=== PATIENT | female | born 1960 | race Caucasian/White ===

== ENCOUNTER 2018-01-25 08:16 | Day surgery (SDC) | payer BC ==
[~2018-01-25 08:16] MED LIST: Buffered Lidocaine 0.9% SYRIN* 5 ML/SYR SYRINGE INTRADERM ONE
[2018-01-25] MEDS ORDERED: Buffered Lidocaine 0.9% SYRIN* 5 ML/SYR SYRINGE ONE (08:28)
[2018-01-25] MEDS ORDERED: Bupivacaine 0.25% SDV* 30 ML ONE (11:51)
[2018-01-25] MEDS ORDERED: fentaNYL* 50 MCG/ML 2 ML VIAL (100 MCG VIAL) ONE (11:55)
[2018-01-25] MEDS ORDERED: Midazolam* 1 MG/ML 2 ML VIAL (2 MG) ONE (11:56)
[2018-01-25] MEDS ORDERED: Naloxone* 0.4 MG/ML 1 ML VIAL IV PRN (11:59)
[2018-01-25] MEDS ORDERED: Propofol* 10 MG/ML 20 ML BTL IV PUSH ONE (12:28)
[2018-01-25 14:01] VITALS: BP 137/76
--- NOTE | 2018-01-30 04:21 | OP ---
DATE OF OPERATION: 01/25/18 - [facility] DATE OF : 58 SURGEON: Cal Maldonado MD QUALITY CONTROL: SAURABH Nova ANESTHESIOLOGIST: Dr. Winkler. ANESTHESIA: Local MAC. PRE-OP DIAGNOSES: 1. Left wrist de Quervain's tendonitis with quite a bit of nodularity and tendon sheath mass. 2. Left carpal tunnel syndrome. POST-OP DIAGNOSES: 1. Left de Quervain's tenosynovitis with abundant tenosynovitis necessitating tenosynovectomy. 2. Left carpal tunnel syndrome. OPERATIVE PROCEDURE: 1. Left wrist de Quervain's release. 2. Left first dorsal compartment tenosynovectomy. 3. Left open carpal tunnel release. INDICATIONS: Jailyn has had severe left de Quervain's disease. Additionally, she informs me that she was having the hand that woke up numb and tingly every morning. I did recommend we do a carpal tunnel release as well. She under- stood risks and benefits. She wanted to proceed with surgery. DESCRIPTION OF PROCEDURE: Jailyn was seen in the preoperative holding area. The correct side, site and the procedure were identified. We came back to the operating room. The arm was prepped and draped in usual fashion. A time-out was performed. I began by making a 2 to 3 cm incision in a standard location for an open carpal tunnel release. Dissection was carried down through the skin and subcutaneous tissue. The transverse carpal ligament was released just off the radial aspect of hook of the hamate. The release was completed distally and proximally. Proximally, the subcutaneous tissue and fascia was released and retracted volarly and ulnarly with the Katey retractor. The remainder of the transverse carpal ligament was released under direct visualization with the tenotomy scissors as was the distal antebrachial fascia. Once the release was checked and was complete, there was absolutely no compression on the nerve, the wound was irrigated out. The skin was closed with 4-0 nylon suture. I then made a 2 cm transverse incision just proximal to the radial styloid. Dissection was carried down bluntly and full-thickness fascia raised off the tendon sheath, identifying and preserving the sensory nerves. The tendon sheath was opened along the dorsal aspect. This was completed proximally and distally with the tenotomy scissors. Obviously it became clear that the nodularity was due to the abundant amount of tenosynovitis that was present in the tendon sheath all the way from the base of the thumb metacarpal down towards the musculotendinous junction. I went ahead and took some time, took [id number] minutes to do this, but I excised off all of the tenosynovitis off of the first dorsal compartment tendons. This was handed off as a specimen. It had a darkish appearance and looked quite inflammatory. At this point, the tendons were looking nice and clean. There was not an accessory compartment. We irrigated out the wound. The tendons were placed back inside the sheath. The skin was closed with 4-0 nylon suture. The wounds were dressed with Xeroform, 4 x 4s, sterile Webril and an Moshe bandage. She was then taken to the recovery room in stable condition. [id number]/CPS #: [id number] ALLY
== END 2018-01-25 14:19 | disposition home or self-care (01) ==
LOC: OR 08:16
PROVIDERS: ATTEND Orthopaedic Surgery Hand Surgery
DX: M65.4 Radial styloid tenosynovitis [de Quervain] (principal); G56.02 Carpal tunnel syndrome, left upper limb; R22.32 Localized swelling, mass and lump, left upper limb; M19.90 Unspecified osteoarthritis, unspecified site; Z68.28 Body mass index [BMI] 28.0-28.9, adult; Z87.891 Personal history of nicotine dependence
CPT/HCPCS: 88304; J2250; J2704; J3010

== ENCOUNTER 2018-12-15 09:25 | Emergency (ER) | payer BC ==
--- NOTE | 2018-12-15 09:55 | ED ---
Abdominal Pain/Female - HPI Summary HPI Summary: A 58 y/o F presents to ED with c/o L-sided ab pain onset 1.5 weeks ago. Pain has not been worsening nor improving. Pain radiates to bilateral back, but not to her chest, and is described as aching, stabbing, and occasionally cramping. Pt saw her PCP this AM and there was blood in her UA, so PCP referred her to ED to r/o kidney stone. Associated sx: mild chills, nausea, intermittent episodes of RLQ pain. Denies dysuria, fever, SOB, vomiting. At bedside, her pain is 5 out of 10 and at its worst was 10 out of 10. She was taking Ibuprofen every three hours for the pain, but has not taken it today. She denies previous episode of similar pain. No PMHx of kidney stones or CRF. PMHx: rheumatoid arthritis, cirrhosis, cholecystectomy. Non-smoker, no ETOH, no recreational drugs. - History of Current Complaint Chief Complaint: EDFlankPain Stated Complaint: FLANK PAIN Time Seen by Provider: 12/15/18 09:40 Hx Obtained From: Patient Onset/Duration: Lasting Weeks, Still Present Timing: Constant Severity Initially: Moderate Severity Currently: Moderate Pain Intensity: 5 Pain Scale Used: 0-10 Numeric Location: Discrete At: RLQ - occassionally, Other - mainly L-sided abd pain Radiates: Yes Radiates to: Back Character: Sharp - stabbing, Cramping, Other: - aching Associated Signs and Symptoms: Positive: Back Pain, Nausea, Other: - neg: SOB. Negative: Fever, Urinary Symptoms, Vomiting Allergies/Adverse Reactions: Allergies Allergy/AdvReac Type Severity Reaction Status Date / Time Adhesive Tape [Paper Tape] Allergy REDNESS Verified 12/15/18 09:31 naproxen [From Aleve] Allergy Bleeding Verified 12/15/18 09:31 BEE STINGS / SPIDER BITES Allergy SWELLING, Uncoded 12/15/18 09:31 DIFFICULTY BREATHING ENVIRONMENTAL Allergy SNEEZING, Uncoded 12/15/18 09:31 COUGHING PMH/Surg Hx/FS Hx/Imm Hx Previously Healthy: No Endocrine/Hematology History: Denies: Hx Diabetes, Hx Thyroid Disease Cardiovascular History: Denies: Hx Congestive Heart Failure, Hx Hypertension, Other Cardiovascular Problems/Disorders Respiratory History: Reports: Other Respiratory Problems/Disorders - History of pneumonia 2009 Denies: Hx Asthma, Hx Chronic Obstructive Pulmonary Disease (COPD) GI History: Reports: Hx Gastroesophageal Reflux Disease - Tums or omeprazole PRN, Hx Hiatal Hernia, Hx Ulcer - age 6, bleeding ulcer -hospitalized, Other GI Disorders - cholecystectomy 2013 History: Denies: Hx Renal Disease Musculoskeletal History: Reports: Hx Arthritis - Psoriatic Arthritis, Rheumatoid Arthritis, Osteoarthritis, Hx Tendonitis - LEFT WRIST, tendon sheath mass, Other Musculoskeletal History - Osteopenia Denies: Hx Osteoporosis Sensory History: Reports: Hx Contacts or Glasses - READING Denies: Hx Hearing Aid Opthamlomology History: Reports: Hx Contacts or Glasses - READING Neurological History: Reports: Hx Migraine - prior to menopause, none recent Denies: Other Neuro Impairments/Disorders - Surgical History Surgery Procedure, Year, and Place: TUBAL LIGATION, [facility]. cauterization of uterus, [facility]. 02/2015 LAPAROSCOPIC CHOLECYSTECTOMY, [facility]. neuroma removed from left foot 10/2015 Hx Anesthesia Reactions: No Infectious Disease History: No Infectious Disease History: Denies: Hx Clostridium Difficile, Hx Hepatitis, Hx Human Immunodeficiency Virus (HIV), Hx of Known/Suspected MRSA, Hx Shingles, Hx Tuberculosis, Hx Known/ Suspected VRE, Hx Known/Suspected VRSA, History Other Infectious Disease, Traveled Outside the [place] in Last 30 Days - Family History Known Family History: Positive: Hypertension Family History: mom - RA; dad - CHF - Social History Occupation: Employed Full-time Lives: With Family Alcohol Use: Occasionally Hx Substance Use: No Substance Use Type: Reports: None Hx Tobacco Use: Yes Smoking Status (MU): Former Smoker Type: Cigarettes Amount Used/How Often: "very few" Length of Time of Smoking/Using Tobacco: 25+ years Have You Smoked in the Last Year: No Review of Systems Positive: Chills - mild. Negative: Fever Negative: Shortness Of Breath Positive: Abdominal Pain, Nausea. Negative: Vomiting Negative: dysuria Musculoskeletal: Other - pos: back pain All Other Systems Reviewed And Are Negative: Yes Physical Exam - Summary Physical Exam Summary: VITAL SIGNS: Reviewed. GENERAL: Patient is a well-developed and nourished female who is lying comfortable in the stretcher. Patient is not in any acute respiratory distress. HEAD AND FACE: Normocephalic and atraumatic. EYES: PERRLA, EOMI x 2, No injected conjunctiva. EARS: Hearing grossly intact. Ear canals and tympanic membranes are WNL. MOUTH: Oropharynx within normal limits. NECK: Supple, trachea is midline, no adenopathy, no JVD. CHEST: Symmetric, no tenderness at palpation LUNGS: Clear to auscultation bilaterally. No wheezing or crackles. CVS: RRR, S1 and S2 present, no murmurs or gallops appreciated. ABDOMEN: Soft, L CVA tenderness. No signs of distention. Positive bowel sounds. No rebound, no guarding, and no masses palpated. No abdominal bruit or pulsations. EXTREMITIES: FROM in all major joints, no edema, no cyanosis or clubbing. NEURO: Alert and oriented x 3. No acute neurological deficits. Speech is normal. SKIN: Dry and warm Triage Information Reviewed: Yes Vital Signs On Initial Exam: Initial Vitals Temp Pulse Resp BP Pulse Ox 97.2 F 81 14 162/89 97 12/15/18 09:28 12/15/18 09:28 12/15/18 09:28 12/15/18 09:28 12/15/18 09:28 Vital Signs Reviewed: Yes Diagnostics - Vital Signs Vital Signs Temp Pulse Resp BP Pulse Ox 12/15/18 09:28 97.2 F 81 14 162/89 97 - Laboratory Result Diagrams: 12/15/18 10:03 12/15/18 10:03 Lab Statement: Any lab studies that have been ordered have been reviewed, and results considered in the medical decision making process. - CT A/P CT Interpretation Completed By: Radiologist Summary of CT Findings: IMPRESSION: 1. FINDINGS MOST CONSISTENT WITH DIVERTICULITIS IN THE PROXIMAL DESCENDING COLON. RECOMMEND CLINICAL CORRELATION AND FOLLOW-UP. 2. 1.5 CM NODULAR DENSITY IN THE RIGHT BREAST. RECOMMEND FOLLOW-UP MAMMOGRAMS FOR FURTHER. EVALUATION. 3. SMALL INFILTRATES AT BOTH LUNG BASES SUGGESTIVE OF ATELECTASIS LESS LIKELY PNEUMONIA. 4. SMALL NONOBSTRUCTING LEFT RENAL CALCULUS. Re-Evaluation - Re-Evaluation 1 Re-Evaluation Time: 11:27 Change: Unchanged Comment: Discussing results with pt and plan to discharge. Pt voiced understanding. Abdominal Pain Fem Course/Dx - Course Course Of Treatment: A 58 y/o F presents to ED with c/o L-sided ab pain onset 1.5 weeks ago. Pain has not been worsening nor improving. Pain radiates to bilateral back, but not to her chest, and is described as aching, stabbing, and occasionally cramping. Pt saw her PCP this AM and there was blood in her UA, so PCP referred her to ED to r/o kidney stone. Associated sx: mild chills, nausea, intermittent episodes of RLQ pain. Denies dysuria, fever, SOB, vomiting. At bedside, her pain is 5 out of 10 and at its worst was 10 out of 10. She was taking Ibuprofen every three hours for the pain, but has not taken it today. She denies previous episode of similar pain. No PMHx of kidney stones or CRF. PMHx: rheumatoid arthritis, cirrhosis, cholecystectomy. Non-smoker, no ETOH, no recreational drugs. Blood work is without any significant abnormality except for CRP of 32.6 and urinalysis positive for ketones no UTI. Abdominopelvic CT impression: Findings most consistent with diverticulitis in the proximal descending colon recommend clinical correlations and follow up. One 0.5 cm nodular density in the right breast recommended follow-up. A small infiltrate in both lung bases suggestive atelectasis less likely pneumonia. Small nonobstructing left renal calculus. In the ED course the patient was given ciprofloxacin and Flagyl for the acute diverticulitis. Next time the patient will be discharged home with follow-up with primary care physician and surgery for the nodular density in the right. The patient understands and agrees. I discussed all the findings and test results with the patient. Patient was instructed to return to the emergency room immediately if any of the symptoms return or worsens. Plan of care was discussed with the patient and understands and agrees. All questions were answered at patient satisfaction. There were no further complaints or concerns. Lung exam before discharge: CTA B/L. Good air exchange. No wheezing or crackles heard. CVS: S1 and S2 present. No murmurs appreciated. Patient is alert and oriented x 3. Patient is hemodynamically stable. Patient will be discharged home with follow up PCP in the next 2-3 day - Diagnoses Differential Diagnosis: Positive: Constipation, Diverticulitis, Pancreatitis, Renal Colic, Urinary Tract Infection Provider Diagnoses: Diverticulitis, Breast nodule Discharge - Sign-Out/Discharge Documenting (check all that apply): Patient Departure - DC - Discharge Plan Condition: Stable Disposition: HOME Prescriptions: Ciprofloxacin TAB* [Cipro 500 MG TAB*] 500 mg PO BID #20 tab metroNIDAZOLE [Flagyl 500 MG TAB] 500 mg PO TID #30 tab Patient Education Materials: Ciprofloxacin (By mouth), Metronidazole (By mouth) , Diverticulitis (ED), Breast Mass (ED) Forms: *Work Release Referrals: Katarzyna Reyna MD [Primary Care Provider] - 3 Days Nicole Sutton MD [Medical Doctor] - 3 Days Additional Instructions: Follow up with your primary care provider in 3 days. Follow up with Dr. Sutton, surgery, in 3 days. RETURN TO THE ED FOR ANY WORSENING OR NEW SYMPTOMS. - Billing Disposition and Condition Condition: STABLE Disposition: Home - Attestation Statements Document Initiated by Scribe: Yes Documenting Scribe: Nii Unger Provider For Whom Yfn is Documenting (Include Credential): Dr. Mark Fairchild MD Scribe Attestation: Nii Curran, scribed for Dr. Mark Fairchild MD on 12/15/18 at 1213. Scribe Documentation Reviewed: Yes Provider Attestation: The documentation as recorded by the Nii wyatt accurately reflects the service I personally performed and the decisions made by , Dr. Mark Fairchild MD Status of Scribe Document: Viewed
[2018-12-15 10:04] LABS: Urine Appearance Cloudy; Urine Bilirubin Negative (Negative); Urine Blood Negative (Negative); Urine Color Yellow; Urine Glucose Negative (Negative); Urine Ketones Trace (Negative); Urine Nitrite Negative (Negative); Urine Protein Negative (Negative); Urine Specific Gravity 1.023 (1.010-1.030); Urine Urobilinogen Negative (Negative)
[2018-12-15 10:11] LABS: ABS Basophils 0 10^3/ul (0-0.2); ABS Eosinophils 0.1 10^3/ul (0-0.6); ABS Lymphocytes 0.8 10^3/ul (1.0-4.8); ABS Monocytes 0.5 10^3/ul (0-0.8); ABS Nucleated RBC 0 10^3/ul; Eosinophil % 2.2 %; Hematocrit 43 % (35-47); Hemoglobin 14.7 g/dl (12.0-16.0); Lymphocyte % 24.5 %; Mean Corpuscular HGB Conc 34 g/dl (31-36); Mean Corpuscular Hemoglobin 35 pg (27-31); Mean Corpuscular Volume 102 fL (80-97); Mean Platelet Volume 8.6 fL (7.4-10.4); Nucleated Red Blood Cells % 0.1; Platelet Count 208 10^3/ul (150-450); Red Blood Count 4.26 10^6/ul (4.00-5.40); Red Cell Distribution Width 13 % (10.5-15); White Blood Count 3.4 10^3/ul (3.5-10.8)
[2018-12-15 10:32] LABS: Albumin 4.2 g/dL (3.2-5.2); Albumin/Globulin Ratio 1.6 (1-3); BUN/Creatinine Ratio 15.9 (8-20); C Reactive Protein 32.63 mg/L (<8.01); Calcium 9.6 mg/dL (8.6-10.3); EGFR Non-African American 71.4 (>60); Globulin 2.7 g/dL (2-4); Potassium 4.2 mmol/L (3.5-5.0); Total Bilirubin 0.4 mg/dL (0.2-1.0); Total Protein 6.9 g/dL (6.4-8.9)
[2018-12-15] MEDS ORDERED: Ciprofloxacin 400MG IVPREMIX(* 400 MG/200 ML BAG IVPB ONE (10:59)
[2018-12-15] MEDS ORDERED: metroNIDAZOLE TAB* 250 MG PO ONE (10:59)
[2018-12-15 12:10] VITALS: BP 144/86
== END 2018-12-15 12:15 | disposition home or self-care (01) ==
LOC: ED 09:25
DX: K57.32 Diverticulitis of large intestine without perforation or abscess without bleeding (principal); N63.10 Unspecified lump in the right breast, unspecified quadrant; R91.8 Other nonspecific abnormal finding of lung field; N20.0 Calculus of kidney; K21.9 Gastro-esophageal reflux disease without esophagitis; Z90.49 Acquired absence of other specified parts of digestive tract; Z88.6 Allergy status to analgesic agent; Z91.030 Bee allergy status; Z91.048 Other nonmedicinal substance allergy status; Z87.891 Personal history of nicotine dependence
CPT/HCPCS: 36415; 74176; 80053; 81003; 83605; 83690; 85025; 86140; 96365; 99283; A9270-GY; J0744

== ENCOUNTER 2019-12-27 08:34 | Emergency (ER) | payer BC, OTHER ==
--- OUTSIDE RECORDS SUMMARY | 2019-12-27 08:46 | XMS REPORT | Continuity of Care Document ---
:1960 External Reference #:[id number] Author Name OBDULIA Whitney (transmitted by agent of provider Ely Eduardo) Address [address] [place] [id number] Care Team Providers Name Role Phone Katarzyna Reyna MD - Internal Care Team Information [facility] Evette Martin M.D. - Single Care Team Information [facility] Problems Active Problems Provider Date Psoriasis Navid Tapia M.D. Onset: 08/19/2012 Psoriasis with arthropathy Navid Tapia M.D. Onset: 08/19/2012 Medications Skilled Nursing (Current) Use Encounter Navid Tapia M.D. Onset: Acute bronchitis Navid Tapia M.D. Onset: 11/04/2013 Diverticulosis of sigmoid colon Katarzyna Reyna M.D. Onset: 01/07/2012 Gastroesophageal reflux disease Katarzyna Reyna M.D. Onset: 01/07/2015 Taking medication OBDULIA Whitney Onset: 01/19/2015 Hiatal hernia Onset: 02/04/2015 Note: small clinical GERD , nl gastroscopy Dr. Hayward Recurrent herpes simplex Katarzyna Reyna M.D. Onset: 09/12/2015 Note: buttocks ( cannot stop suppressive therapy ) Psoriatic dactylitis Katarzyna Reyna M.D. Onset: 10/15/2015 Osteopenia Katarzyna Reyna M.D. Onset: 01/14/2017 Radial styloid tenosynovitis Cal Maldonado MD Onset: 12/30/2017 Localized superficial swelling of skin Cal Maldonado MD Onset: 12/30/2017 Kidney stone Katarzyna Reyna M.D. Onset: 12/16/2018 Note: non obstructive Social History Type Date Description Comments Sex Unknown ETOH Use Denies alcohol use Tobacco Use Start: Unknown Patient is a former Quit Oct 2014 3-4 cig End: Unknown smoker X 25 yrs Recreational Drug Use Denies Drug Use Smoking Status Reviewed: 12/09/19 Patient is a former Quit Oct 2014 3-4 cig smoker X 25 yrs Exercise Type/Frequency Exercises regularly uses exercise bike 6 miles 4 times a week , walking , stretching yoga Allergies, Adverse Reactions, Alerts Active Allergies Reaction Severity Comments Date Aleve 02/20/2011 Naproxen Nausea and Vomiting, Bleeding 02/20/2011 Bee Sting 02/20/2011 Spider Bites 02/20/2011 Medications Active Medications SIG Qnty Indications Ordering Date Provider Bupropion take 1 tablet by 30tabs F43.21 Chuy Martin, 12/09/2019 Hydrochloride ER (SR) mouth every day COMMUNITY NURSE in the morning 100mg Tablets ER 12HR Clobetasol Propionate use on lt palm 60gm R21 Chuy Martin, 09/24/2018 2x daily for 2 COMMUNITY NURSE 0.05% Cream weeks on and 1 week off Simvastatin Take 1 Tablet By 90tabs Katarzyna Reyna, 08/26/2018 20mg Tablets Mouth Once Daily M.DSavage B12 1000MG Cal Maldonado, 12/30/2017 Aspir-81 1 by mouth every 100tabs Braydon Valdes NP 01/21/[address] valorie Caraballo apply to 1tubes L40.59 Chuy Martin, 07/18/2014 1% Gel affected area COMMUNITY NURSE twice a day, as needed Enbrel Sureclick Inject 50 MG (1 12units L40.9 Chuy Martin, 09/18/2011 50mg/ml ML) Under The COMMUNITY NURSE Solution Auto-Inject Skin Once A Week Z79.899 L40.59 Calcium 500 +D 1 po qd Unknown [id number] Tablets Vitamin D3 1 by mouth every day 30caps Unknown 2000Unit Capsules Multi For Her 1 by mouth every day 90caps Unknown Capsules Epipen 2-Ramirez use as directed for 1units T63.391S Chuy Martin, 0.3mg/0.3ML bee sting COMMUNITY NURSE Solution Auto-Inject anaphylaxis Vitamin C 1 by mouth every day Unknown 500mg Chewtabs Osteo Bi-Flex Regular 1 by mouth every day Unknown Strength 250-200mg Tablets Evening Seibert Oil a day Unknown 3mg Capsules Vitamin E 1 cap by mouth every Unknown 400Unit Capsules day for supplement Valacyclovir HCL Take 1 Tablet By 90tabs Katarzyna Reyna, 1gm Mouth Once Daily M.D. Tablets Medications Administered in Office Medication SIG Qnty Indications Ordering Provider Date Inj, Regadenoson, 0.1 MG Nick Rendon, DO FAC 01/02/2016 Injection Technetium TC 99M Nick Rendon, DO [facility] 01/02/2016 Tetrofosmin, Per Unit Dose Up To 40 Millicuries Injection PPD Nurse Visit 02/24/2011 Injection Immunizations CPT Code Status Date Vaccine Lot # [id number] Given 01/13/2013 Tdap - Tetanus/Diptheria/Acellular Pertussis [id number] Refused 01/14/2017 Influ Virus Vaccine, Quadrivalent, Split Virus, [place] [id number] Refused 10/15/2015 Influenza Virus Vaccine, Quadrivalent, Split, Preservative Free Vital Signs Date Vital Result Comment 12/09/2019 8:22am Height 60 inches 5'0" Weight 156.00 lb Heart Rate 59 /min BP Systolic 129 mmHg BP Diastolic 82 mmHg Body Temperature 97.7 F O2 % BldC Oximetry 97 % BMI (Body Mass Index) 30.5 kg/m2 08/09/2019 3:18pm Height 60 inches 5'0" Weight 148.38 lb Heart Rate 75 /min BP Systolic 142 mmHg BP Diastolic 92 mmHg Body Temperature 97.4 F O2 % BldC Oximetry 96 % BMI (Body Mass Index) 29.0 kg/m2 Results Test Acquired Date Facility Test Result H/L Range Note CBC Auto 12/05/2019 [facility] White Blood 5.4 10^3/uL Normal 3.5-10.[address] [place] [address] [phone] Red Blood Count 4.29 10^6/uL Normal 3.70-4.87 Hemoglobin 14.9 g/dL Normal 12.0-16.0 Hematocrit 44 % Normal 35-47 Mean Corpuscular Volume 102 fL High 80-97 Mean Corpuscular Hemoglobin 35 pg High 27-31 Mean Corpuscular HGB Conc 34 g/dL Normal 31-36 Red Cell Distribution Width 13 % Normal 10-15 Platelet Count 231 10^3/uL Normal 150-450 Mean Platelet Volume 8.8 fL Normal 7.4-10.4 Abs Neutrophils 3.1 10^3/uL Normal 1.5-7.7 Abs Lymphocytes 1.7 10^3/uL Normal 1.0-4.8 Abs Monocytes 0.5 10^3/uL Normal 0-0.8 Abs Eosinophils 0.1 10^3/uL Normal 0-0.6 Abs Basophils 0.0 10^3/uL Normal 0-0.2 Abs Nucleated RBC 0.0 10^3/uL Granulocyte % 56.7 % Lymphocyte % 31.4 % Monocyte % 9.2 % Eosinophil % 2.0 % Basophil % 0.7 % Nucleated Red Blood Cells % 0.0 Comp Metabolic 12/05/2019 [facility] Sodium 141 mmol/L Normal 135-[address] [place] [address] [phone] Potassium 4.2 mmol/L Normal 3.5-5.0 Chloride 105 mmol/L Normal 101-111 Co2 Carbon Dioxide 31 mmol/L Normal 22-32 Anion Gap 5 mmol/L Normal 2-11 Glucose 74 mg/dL Normal 70-100 Blood Urea Nitrogen 16 mg/dL Normal 6-24 Creatinine 1.03 mg/dL High 0.51-0.95 BUN/Creatinine Ratio 15.5 Normal 8-20 Calcium 9.8 mg/dL Normal 8.6-10.3 Total Protein 7.0 g/dL Normal 6.4-8.9 Albumin 4.7 g/dL Normal 3.2-5.2 Globulin 2.3 g/dL Normal 2-4 Albumin/Globulin Ratio 2.0 Normal 1-3 Total Bilirubin 0.30 mg/dL Normal 0.2-1.0 Alkaline Phosphatase 59 U/L Normal 34-104 Alt 32 U/L Normal 7-52 Ast 24 U/L Normal 13-39 Egfr Non- 54.7 >60 Egfr 66.1 >60 1 Laboratory test 12/05/2019 [facility] C Reactive < 1.00 Normal <8.01 [address] Protein mg/[place] [address] [phone] Erythrocyte Sed Rate 7 mm/Hr Normal 0-29 3 CBC Auto 08/11/2019 [facility] White Blood 3.9 10^3/uL Normal 3.5-10.[address] [place] [address] [phone] Red Blood Count 4.21 10^6/uL Normal 3.70-4.87 Hemoglobin 14.7 g/dL Normal 12.0-16.0 Hematocrit 43 % Normal 35-47 Mean Corpuscular Volume 102 fL High 80-97 Mean Corpuscular Hemoglobin 35 pg High 27-31 Mean Corpuscular HGB Conc 34 g/dL Normal 31-36 Red Cell Distribution Width 13 % Normal 10-15 Platelet Count 223 10^3/uL Normal 150-450 Mean Platelet Volume 9.0 fL Normal 7.4-10.4 Abs Neutrophils 2.0 10^3/uL Normal 1.5-7.7 Abs Lymphocytes 1.5 10^3/uL Normal 1.0-4.8 Abs Monocytes 0.4 10^3/uL Normal 0-0.8 Abs Eosinophils 0.1 10^3/uL Normal 0-0.6 Abs Basophils 0.0 10^3/uL Normal 0-0.2 Abs Nucleated RBC 0.0 10^3/uL Granulocyte % 50.5 % Lymphocyte % 36.8 % Monocyte % 9.6 % Eosinophil % 2.3 % Basophil % 0.8 % Nucleated Red Blood Cells % 0.1 Comp Metabolic 08/11/2019 [facility] Sodium 141 mmol/L Normal 135-[address] [place] [address] [phone] Potassium 4.1 mmol/L Normal 3.5-5.0 Chloride 106 mmol/L Normal 101-111 Co2 Carbon Dioxide 29 mmol/L Normal 22-32 Anion Gap 6 mmol/L Normal 2-11 Glucose 94 mg/dL Normal 70-100 Blood Urea Nitrogen 13 mg/dL Normal 6-24 Creatinine 0.91 mg/dL Normal 0.51-0.95 BUN/Creatinine Ratio 14.3 Normal 8-20 Calcium 9.6 mg/dL Normal 8.6-10.3 Total Protein 6.7 g/dL Normal 6.4-8.9 Albumin 4.4 g/dL Normal 3.2-5.2 Globulin 2.3 g/dL Normal 2-4 Albumin/Globulin Ratio 1.9 Normal 1-3 Total Bilirubin 0.50 mg/dL Normal 0.2-1.0 Alkaline Phosphatase 61 U/L Normal 34-104 Alt 27 U/L Normal 7-52 Ast 25 U/L Normal 13-39 Egfr Non- 63.1 >60 Egfr 76.3 >60 4 Laboratory test 08/11/2019 [facility] C Reactive < 1.00 Normal <8.01 [address] Protein mg/[place] [address] [phone] Erythrocyte Sed Rate 4 mm/Hr Normal 0-29 6 1 Because ethnic data is not always readily available, this report includes an eGFR for both -Americans and non- Americans. The National Kidney Disease Education Program (NKDEP) does not endorse the use of the MDRD equation for patients that are not between the ages of 18 and 70, are , have extremes of body size, muscle mass, or nutritional status, or are non- or non-. According to the National Kidney Foundation, irrespective of diagnosis, the stage of the disease is based on the level of kidney function: Stage Description GFR(mL/min/1.73 m(2)) 1 Kidney damage with normal or decreased GFR 90 2 Kidney damage with mild decrease in GFR 60-89 3 Moderate decrease in GFR 30-59 4 Severe decrease in GFR 15-29 5 Kidney failure <15 (or dialysis) 2 ORDERED 08.09.19 EXPIRES 02.07.20 3 ORDERED 08.09.19 EXPIRES 02.07.20 4 Because ethnic data is not always readily available, this report includes an eGFR for both -Americans and non- Americans. The National Kidney Disease Education Program (NKDEP) does not endorse the use of the MDRD equation for patients that are not between the ages of 18 and 70, are , have extremes of body size, muscle mass, or nutritional status, or are non- or non-. According to the National Kidney Foundation, irrespective of diagnosis, the stage of the disease is based on the level of kidney function: Stage Description GFR(mL/min/1.73 m(2)) 1 Kidney damage with normal or decreased GFR 90 2 Kidney damage with mild decrease in GFR 60-89 3 Moderate decrease in GFR 30-59 4 Severe decrease in GFR 15-29 5 Kidney failure <15 (or dialysis) 5 ORDERED:04/06/19 :10/07/19 STANDING ORDER 6 ORDERED:04/06/19 :10/07/19 STANDING ORDER Procedures Date Code Description Status 03/17/2019 90268517 Colonoscopy Completed 12/28/2018 [id number] Mammogram Completed 08/24/2018 [id number] Bone Mineral Density Test Completed 11/04/2017 [id number] Mammogram Completed 08/07/2017 [id number] Diabetic Retinal Eye Exam Completed 07/09/2016 [id number] Mammogram Completed 01/24/2016 [id number] Bone Mineral Density Test Completed 04/12/2015 [id number] Mammogram Completed Medical Devices Description No Information Available Encounters Type Date Location Provider Dx Diagnosis Office Visit 08/09/2019 Rheumatology Chuy Martin, L40.59 Other psoriatic 3:[facility]p [facility] arthropathy L40.9 Psoriasis, unspecified M79.10 Myalgia, unspecified site Z79.899 Other moth exterminator (current) drug therapy Assessments Date Code Description Provider 12/09/2019 L40.59 Other psoriatic arthropathy LINDA WhitneyP 12/09/2019 L40.9 Psoriasis, unspecified LINDA WhitneyP 12/09/2019 Z79.899 Other moth exterminator (current) drug therapy OBDULIA Whitney 12/09/2019 F43.21 Adjustment disorder with depressed mood OBDULIA Whitney 08/09/2019 L40.59 Other psoriatic arthropathy OBDULIA Whitney 08/09/2019 L40.9 Psoriasis, unspecified OBDULIA Whitney 08/09/2019 M79.10 Myalgia, unspecified site LINDA WhitneyP 08/09/2019 Z79.899 Other moth exterminator (current) drug therapy OBDULIA Whitney Plan of Treatment Future Appointment(s):01/06/2020 8:00 am - OBDULIA Whitney at [facility]12/09/2019 - Chuy Martin, FNPL40.59 Other psoriatic arthropathyComments:Your arthritis seems to be clinically well controlled at this time.You continue with achy pain and stiffness.Your inflammatory markers are within normal range.Your latest laboratory tests indicate no detectable impairment of kidney and liver functions.Please, continue with Enbrel.Will stop Hydroxychloroquine as your limey do not need this medication to control the arthritis.You may use Voltaren on any achy jointContinue with regular blood tests. You will need to have a blood test done about a week prior to your next appointment.You have a standing lab order on file. Refills for your medications will sent to your pharmacy.We encourage you to participate in exercise programs and carry out daily activities as your condition allows. Cardiovascular health is essential for successful treatment. Please call the office if you develop any sign or symptoms of infection, increased skin or articular involvement or acute change in your health.Follow up:4-6 week Call if any side effects of medication or not helping in 2-3 nfxnzE18.9 Psoriasis, hhniofgklyjL21.899 Other retirement (current) drug ggoaozjA51.21 Adjustment disorder with depressed moodNew Medication:Bupropion Hydrochloride ER (SR) 100 mg - take 1 tablet by mouth every day in the morningComments:We discussed medication side effects: among others of depression and possibility of serotonin syndrome.We warned of potential withdrawal symptoms if medication is abruptly stopped. You should consider counseling for support. This helps in conjunction with the medication. MEDICATIONS:Selective Serotonin Reuptake Inhibitors (SSRIs)SSRIs relieve symptoms by blocking the reabsorption, or reuptake, of serotonin by certain nerve cells in the brain. This leaves more serotonin available, which improves mood. SSRIs (citalopram, escitalopram, fluoxetine, paroxetine, and sertraline) generally produced fewer side effects when compared with tricyclic antidepressants. However, common side effects includeinsomnia or sleepiness, sexual dysfunction, and weight gain. They are considered an effective treatment for all anxiety disorders, although the treatment of obsessive-compulsive disorder, or OCD, typically requires higher doses.Serotonin-Norepinephrine Reuptake Inhibitors (SNRIs)The serotonin-norepinephrine reuptake inhibitor, or SNRI, class (venlafaxine and duloxetine) is notable for a dual mechanism of action: increasing the levels of the neurotransmitters serotonin and norepinephrine by inhibiting their reabsorption into cells in the brain. As with other medications, side effects may occur, including stomach upset, insomnia, headache, sexual dysfunction, and minor increase in blood pressure. These medications are considered as effective as SSRIs, so they are also considered a first-line treatment, particularly for the treatment of generalized anxiety disorder.MEDICATIONS/general Most people need to take medications for at least 6 weeks to see full effect. Common side effects are constipation/diarrhea and nausea, weigh change, insomnia. It is generally recommended not to stop medication abruptly. You may experience increased suicidal thoughts. If this occurs please call us or the hot line immediately. Medications has many drug interaction. You should not be using any recreational drugs or alcohol while on this medication. Functional Status Description No Information Available Mental Status Description No Information Available Referrals Description No Information Available
[2019-12-27 09:00] VITALS: BP 152/88
--- NOTE | 2019-12-27 10:11 | UC ---
FLU HPI - HPI Summary HPI Summary: 3 DAYS OF COUGH, CHILLS, SUBJECTIVE FEVER, BODY ACHES, HEADACHE, SORE THROAT, EAR PAIN. NO NAUSEA/VOMITING. NO FLU SHOT THIS SEASON. - History of Current Complaint Chief Complaint: UCGeneralIllness Stated Complaint: SORE THROAT COUGH Time Seen by Provider: 12/27/19 10:00 Hx Obtained From: Patient Onset/Duration: Gradual Onset, Lasting Days, Still Present Severity Currently: Moderate Severity Initially: Moderate Pain Intensity: 5 Pain Scale Used: 0-10 Numeric Associated Signs & Symptoms: Positive: Fever, Myalgia, Cough, Sore Throat, Headache - Allergy/Home Medications Allergies/Adverse Reactions: Allergies Allergy/AdvReac Type Severity Reaction Status Date / Time Adhesive Tape [Paper Tape] Allergy REDNESS Verified 12/27/19 08:52 naproxen [From Aleve] Allergy Bleeding Verified 12/27/19 08:52 BEE STINGS / SPIDER BITES Allergy SWELLING, Uncoded 12/27/19 08:52 DIFFICULTY BREATHING ENVIRONMENTAL Allergy SNEEZING, Uncoded 12/27/19 08:52 COUGHING PMH/Surg Hx/FS Hx/Imm Hx Previously Healthy: Yes - Surgical History Surgical History: Yes Surgery Procedure, Year, and Place: TUBAL LIGATION, [facility]. cauterization of uterus, [facility]. 02/2015 LAPAROSCOPIC CHOLECYSTECTOMY, [facility] [place]. neuroma removed from left foot 10/2015 - Family History Known Family History: Positive: Hypertension, Non-Contributory Family History: mom - RA; dad - CHF - Social History Alcohol Use: Occasionally Substance Use Type: None Smoking Status (MU): Former Smoker Type: Cigarettes Amount Used/How Often: "very few" Length of Time of Smoking/Using Tobacco: 25+ years Have You Smoked in the Last Year: No When Did the Patient Quit Smoking/Using Tobacco: 2013 Review of Systems All Other Systems Reviewed And Are Negative: Yes Constitutional: Positive: Fever, Chills, Fatigue ENT: Positive: Sore Throat, Ear Ache Respiratory: Positive: Cough Cardiovascular: Positive: Negative Gastrointestinal: Positive: Negative Musculoskeletal: Positive: Myalgia Neurological: Positive: Headache Physical Exam Triage Information Reviewed: Yes Appearance: No Pain Distress, Well-Nourished, Ill-Appearing - SEEMS FATIGUED Vital Signs: Initial Vital Signs Temp 98.5 F 12/27/19 08:55 Pulse 85 01/28/20 08:55 Resp 18 12/27/19 08:55 BP 152/88 12/27/19 08:55 Pulse Ox 95 12/27/19 08:55 Laboratory Tests 12/27/19 12/27/19 09:28 09:30 Influenza A (Rapid) Positive Group A Strep Rapid Negative Vital Signs Reviewed: Yes Eyes: Positive: Conjunctiva Clear ENT: Positive: Hearing grossly normal, Pharynx normal, TMs normal Neck: Positive: Supple, Nontender, No Lymphadenopathy Respiratory Exam: Normal Cardiovascular Exam: Normal Abdomen Description: Positive: Soft Musculoskeletal: Positive: No Edema Neurological: Positive: Alert Psychological: Positive: Age Appropriate Behavior Skin: Negative: Rashes Flu Course/Dx - Course Course Of Treatment: FLU A POSITIVE. TAMIFLU BID X 5 DAYS. REST, HYDRATE, OTC MEDS NEEDED. F/U IF NOT IMPROVING EXPECTED. - Differential Dx/Diagnosis Provider Diagnosis: Influenza A Discharge ED - Sign-Out/Discharge Documenting (check all that apply): Patient Departure All imaging exams completed and their final reports reviewed: No Studies - Discharge Plan Condition: Stable Disposition: HOME Prescriptions: Oseltamivir CAP* [Tamiflu CAP*] 75 mg PO BID #10 cap Patient Education Materials: Influenza (ED) Forms: *Work Release Referrals: Katarzyna Reyna MD [Primary Care Provider] - If Needed Additional Instructions: SWAB POSITIVE FOR INFLUENZA A. TAMIFLU TWICE DAILY FOR 5 DAYS. OTC MEDS NEEDED FOR FEVER, BODY ACHES. STAY WELL HYDRATED AND RESTED. SEEK FOLLOW-UP IF YOU ARE NOT IMPROVING EXPECTED. - Billing Disposition and Condition Condition: STABLE Disposition: Home
[2019-12-28 10:23] LABS: Influenza A Molecular POSITIVE (Negative)
== END 2019-12-27 10:37 | disposition home or self-care (01) ==
LOC: UCEAST 08:34
DX: J10.1 Influenza due to other identified influenza virus with other respiratory manifestations (principal); Z87.891 Personal history of nicotine dependence; Z91.09 Other allergy status, other than to drugs and biological substances; Z91.030 Bee allergy status; Z88.6 Allergy status to analgesic agent
CPT/HCPCS: 87651; 99212; G0463